=== PATIENT | female | born 1965 | race Two or more races ===

== ENCOUNTER 2019-03-30 08:32 | Emergency (ER) | payer MEDICAID ==
[~2019-03-30] VITALS: Ht 144.8 cm; Wt 56.9 kg
[2019-03-30] MEDS ORDERED: SODIUM CHLORIDE 0.9% 1000ML BAG (SEPSIS BOLUS) IV ONE (09:15)
[2019-03-30] MEDS ORDERED: CEFTRIAXONE 1 G PREMIX 50 ML IV ONE (09:15)
[2019-03-30] MEDS ORDERED: PIPERACILLIN/TAZ 3.375G PREMIX 50 ML IV ONE (09:30)
[2019-03-30] MEDS: VANCOMYCIN 1 G PREMIX 200 ML IV SCH (09:30)
[2019-03-30 09:53] LABS: BASOPHILS % 1.2 % (0.0-2.0); EOSINOPHILS % 0.9 % (0.0-5.0); HEMATOCRIT. 34.8 % (36.0-48.0); HEMOGLOBIN. 11.9 g/dL (12.0-16.0); MEAN CORPUSCULAR HEMOGLOBIN 28.3 pg (28.0-32.0); MEAN CORPUSCULAR VOLUME 82.9 fL (81.0-99.0); MEAN PLATELET VOLUME 9.1 fl (7.4-10.4); MONOCYTES % 8.3 % (2.0-8.0); NEUTROPHILS % 68.6 % (40.0-76.0); PLATELET 318 x1000/uL (130-400); RED CELL DISTRIBUTION WIDTH 14.5 % (11.6-14.6)
[2019-03-30 10:18] LABS: CLARITY URINE CLEAR (CLEAR); COLOR URINE YELLOW (YELLOW); KETONES URINE NEGATIVE (NEGATIVE); LEUKOCYTE ESTERASE URINE 1+ (NEGATIVE); NITRITE URINE POSITIVE (NEGATIVE); OCCULT BLOOD URINE TRACE (NEGATIVE); PROTEIN URINE NEGATIVE (NEGATIVE); SPECIFIC GRAVITY URINE 1.005 (1.005-1.030); UROBILINOGEN URINE 0.2 E.U./dL (0.2-1.0)
[2019-03-30 10:47] LABS: PROTHROMBIN TIME 10.3 sec (9.6-11.0)
[2019-03-30 12:02] LABS: CHLORIDE 107 mEq/L (98-107)
[2019-03-30 13:04] VITALS: BP 135/65
[2019-03-30] MEDS ORDERED: ONDANSETRON HCL 4MG/2ML INJ IV ONE (14:30)
[2019-03-30] MEDS ORDERED: MORPHINE SULFATE 4 MG/ML CPJ (NOT FOR IM USE) IV ONE (14:30)
[2019-03-30] MEDS ORDERED: PIPERACILLIN/TAZ 3.375G PREMIX 50 ML IV SCH (17:00)
[2019-03-30] MEDS ORDERED: VANCOMYCIN 1 G PREMIX 200 ML IV SCH (17:00)
== END 2019-03-30 17:02 | disposition left against medical advice (07) ==
LOC: ER 08:32
DX: M65.88 Other synovitis and tenosynovitis, other site (principal); L03.113 Cellulitis of right upper limb
CPT/HCPCS: 36415; 71045; 73130; 80053; 81003; 83605; 84145; 85025; 85610; 87040; 87086; 93005; 96365; 96366; 96368; 96375; 99284; J2270; J2405; J2543; J3370; J7030